=== PATIENT | male | born 1950 | race Caucasian/White ===

== ENCOUNTER 2016-10-28 10:15 | Inpatient (IN) | payer OTHER ==
[~2016-10-28] VITALS: Ht 175.3 cm; Wt 115.8 kg
--- NOTE | ~2016-10-28 | EKG ---
[address] [address] ELECTROCARDIOGRAM REPORT Name: RADHA DEL VALLE Room #: 245-[facility].R.#: [id number] Admission: 10/29/16 Attend Phys: Jacob Flores MD Discharge: Date of : 48 Report #: [id number] THIS REPORT FOR: //name// [facility] Test Date: 2016-10-28 Test Time: 13:32:13 Pat Name: RADHA DEL VALLE Department: Room: [facility] Gender: M Vehicle Check In Clerk: juanjose : 1950 Requested By: Jacob Flores Order Number: [id number] MD: Herb Hooper Measurements Intervals [place] Rate: 56 P: 3 [place]: 134 QRS: 81 QRSD: 128 T: 71 QT: 487 QTc: 471 Interpretive Statements Sinus bradycardia Nonspecific intraventricular conduction delay Compared to ECG 11/27/2004 07:09:20 nonspecific change in the ST and T wave segments Electronically Signed On 10-29-2016 9:19:21 CDT by Herb Hooper [email or web address] <ELECTRONICALLY SIGNED> By: Herb Hooper MD, [facility] 10/29/16918 31 31 Herb Hooper MD, FAC /EPI
--- NOTE | ~2016-10-28 | EKG ---
[address] [address] ELECTROCARDIOGRAM REPORT Name: RADHA DEL VALLE Room #: 209-P ADM IN M.R.#: [id number] Admission: 10/28/16 Attend Phys: Jacob Flores MD Discharge: Date of : 48 Report #: [id number] THIS REPORT FOR: //name// [facility] Test Date: 2016-11-01 Test Time: 07:50:07 Pat Name: RADHA DEL VALLE Department: Room: 209 Gender: M Street Department Dispatcher: elva : 1950 Requested By: Pablo Ogden Order Number: [id number] MD: Herb Hooper Measurements Intervals [place] Rate: 85 P: 59 [place]: 149 QRS: 75 QRSD: 119 T: 30 QT: 408 QTc: 486 Interpretive Statements Sinus rhythm Nonspecific intraventricular conduction delay Low voltage, extremity leads Compared to ECG 10/29/2016 06:45:19 Intraventricular conduction delay now present Electronically Signed On 11-02-2016 14:59:43 CDT by Herb Hooper [email or web address] <ELECTRONICALLY SIGNED> By: Herb Hooper MD, [facility] 11/02/16 1459 0750 0750 Herb Hooper MD, FAC /EPI
--- NOTE | ~2016-10-28 | EKG ---
[address] [place] [address] ELECTROCARDIOGRAM REPORT Name: RADHA DEL VALLE Room #: 245-P ADM IN M.R.#: [id number] Admission: 10/28/16 Attend Phys: Jacob Flores MD Discharge: Date of : 48 Report #: [id number] THIS REPORT FOR: //name// [facility] Test Date: 2016-10-29 Test Time: 06:45:19 Pat Name: RADHA DEL VALLE Department: Room: [facility] Gender: M Manager Risk Management: wilmar : 1950 Requested By: Pablo Ogden Order Number: [id number] MD: Herb Hooper Measurements Intervals [place] Rate: 85 P: 55 [place]: 132 QRS: 89 QRSD: 105 T: 43 QT: 377 QTc: 449 Interpretive Statements Sinus rhythm Low voltage, extremity leads Compared to ECG 11/27/2004 07:09:20 Low QRS voltage now present no significant change was found Electronically Signed On 10-30-2016 8:43:08 CDT by Herb Hooper [email or web address] <ELECTRONICALLY SIGNED> By: Herb Hooper MD, [facility] 10/30/16 0843 Herb Hooper MD, [facility] /EPI
--- NOTE | ~2016-10-28 | HC ---
[facility] [place] [address] [place] [address] CONSULTATION Name: RADHA DEL VALLE Room #: 245-P ADM IN M.R.#: [id number] Admission: 10/28/16 Attend Phys: Jacob Flores MD Discharge: Date of : 48 Report #: [id number] THIS REPORT FOR: //name// CC: Jacob Parekh REASON FOR CONSULTATION: Acute kidney injury. REASON FOR PRESENTATION: Elective cardiac catheterization. HISTORY OF PRESENT ILLNESS: This is a very pleasant 66-year-old with past medical history of diabetes mellitus, hypertension. He is also known to have chronic kidney disease. He runs a baseline creatinine of around 1.5. He is known to have nephrolithiasis status post extraction with cystoscopy procedure x 2. He presented to the laboratory immunologist for cardiac catheterization. He was maintained on losartan, metformin, statin, baby aspirin. The initial cardiac catheterization revealed that the patient has a significant LAD lesion. Attempted angioplasty was done, it is not clear how much contrast did he receive from the notes. Multiple balloons were used. The patient was sent to the recovery room where he continued to have chest pain. He was retaken to the catheterization lab and LAD angioplasty was done for the second time. This has resulted in increased duration of the flow. It was not also clear how much did the patient receive of the contrast. He was then taken to an uneventful emergent coronary artery bypass grafting surgery. On presentation to the hospital had a baseline creatinine of around 1.5, which is very close to his previous old records. He had some low blood pressure reading, but no [place] hypotension. Post cath, his creatinine started to go up to a peak of 2.4. He continued to make urine. I was consulted to manage his acute kidney injury. PAST MEDICAL HISTORY: 1. Diabetes mellitus. 2. Hypertension. 3. Nephrolithiasis. 4. Hyperlipidemia. 5. Chronic kidney disease. PAST SURGICAL HISTORY: 1. Cystoscopy. 2. Recent cardiac catheterization. 3. Gallbladder surgery. 4. Melanoma, cancer removal from the neck. 5. Coronary artery bypass grafting. MEDICATIONS: 1. Metformin. 2. Losartan. 3. Simvastatin. [facility] [address] [place] [address] CONSULTATION Name: RADHA DEL VALLE Uvaldo Room #: 245-P [facility] IN .R.#: [id number] Admission: 10/28/16 Attend Phys: Jacob Flores MD Discharge: Date of : 48 Report #: [id number] 4. Baby aspirin. FAMILY HISTORY: Significant for diabetes mellitus. SOCIAL HISTORY: He denies drug or alcohol abuse. He is retired. 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 REVIEW OF SYSTEMS: GENERAL: As expected, some weakness as expected. CARDIOVASCULAR: Minimal chest pain related to coronary artery bypass grafting wound. PULMONARY: No cough or hemoptysis. GASTROINTESTINAL: No nausea or vomiting. GENITOURINARY: No frequency, no urgency. PHYSICAL EXAMINATION: GENERAL: He is alert, oriented and afebrile. VITAL SIGNS: Temperature of 37, pulse rate was 78. Blood pressure was 116/70. He had a right-sided Cordis line. He has chest tubes. CHEST: Decreased air entry bilaterally, but no crackles. CARDIOVASCULAR: Midline wound. Regular with no rub detected. ABDOMEN: Soft, nontender with no hepatosplenomegaly. LOWER EXTREMITIES: No edema. LABORATORY DATA: Reviewed. Creatinine as I have stated has gone up from 1.5-2.4. Potassium is okay. Acid base status is okay. Chest x-ray reviewed. ASSESSMENT, IMPRESSION, PLAN: 1. Acute kidney injury with contrast induced nephropathy. 2. Status post coronary artery bypass grafting. 3. Coronary artery disease. 4. Diabetes mellitus. 5. Hypertension. 6. Chronic kidney disease with a creatinine . 7. I need to clarify with the laboratory immunologist the amount of the contrast he received on those two cath procedures. 8. I will send appropriate acute kidney injury workup including limited UA with urine electrolytes. 9. He continues to make appropriate amount of urine and hopefully will recover from this event or from this incident uneventfully. 10. Optimize blood pressure. 11. Hold losartan. 12. Hold metformin and any other nephrotoxic agents. [address] [address] CONSULTATION Name: RADHA DEL VALLE Room #: 245-P [facility] IN M.R.#: [id number] Admission: 10/28/16 Attend Phys: Jacob Flores MD Discharge: Date of : 48 Report #: [id number] 13. Strict input and output. Monitor urine output. Repeat labs in the morning. 14. Risk of continued worsening of his acute kidney injury was discussed with his. 15. Risk of need for dialysis was also discussed for his. At this point, I see no indication for any invasive intervention and will follow along in the next few days. 16. Continue with the appropriate treatment for his coronary artery disease including beta bg, aspirin, statin. As I have stated about will hold on any angiotensin-converting enzyme and until his overall of his kidney function recovers. 17. Blood sugar control. <ELECTRONICALLY SIGNED> By: Mushtaq Armijo MD 10/31/16 0921 1015 1222 Mushtaq Armijo MD /nt
--- NOTE | ~2016-10-28 | HC ---
[facility] [place] [address] CONSULTATION Name: RADHA DEL VALLE Room #: 209-P [facility] IN M.R.#: [id number] Admission: 10/28/16 Attend Phys: Jacob Flores MD Discharge: 11/03/16 Date of : 48 Report #: [id number] THIS REPORT FOR: //name// CC: Jacob Parekh DATE OF SERVICE: 10/30/2016 REQUESTING PHYSICIAN: Dr. Ogden. REASON FOR CONSULTATION: Medical management. HISTORY OF PRESENT ILLNESS: The patient is a 66-year-old man with coronary artery disease, who underwent emergent coronary artery bypass grafting surgery after cardiac catheterization and angioplasty. He had procedure on 10/28/2016. The patient is recovering well. His postop course is uncomplicated. The patient is alert and awake. He reports minor postop pain, and mild cough. Otherwise, he is asymptomatic. The patient states that he was diagnosed with diabetes mellitus type 2 five or six years ago. He takes metformin 500 mg twice a day. He checks blood sugars only in the morning, and he states that his blood sugar is almost always less than 120. He does not check blood sugars in the evening. We do not have current hemoglobin A1c available. The patient considers his diabetes is well controlled. He does not follow any specific diet, and he is not physically active. The patient developed acute kidney injury after cardiac catheterization. Initially, his creatinine was 1.5. Currently, his creatinine is 2.4. Metformin is discontinued. The patient is started on subcutaneous insulin. He is followed by communications intern. PAST MEDICAL HISTORY: 1. Diabetes mellitus type 2. 2. Hypertension. 3. History of nephrolithiasis. 4. Dyslipidemia. CURRENT MEDICATIONS: Reviewed and documented in the patient's chart. FAMILY HISTORY: Reviewed and not pertinent to the patient's current condition. SOCIAL HISTORY: The patient is retired. He does not smoke cigarettes and does not drink alcohol. [facility] [address] [place] [address] CONSULTATION Name: RADHA DEL VALLE Room #: 209-P [facility] IN [facility].#: [id number] Admission: 10/28/16 Attend Phys: Jacob Flores MD Discharge: 11/03/16 Date of : 48 Report #: [id number] REVIEW OF SYSTEMS: As above in HPI section, all others negative. PHYSICAL EXAMINATION: GENERAL: The patient is an elderly man who is in no apparent distress. He is alert and oriented x 3. VITAL SIGNS: Blood pressure is 106/45, heart rate is 101, respiration is 26, temperature is 37.6. HEENT: Pupils are equal. Eye movements are normal. The patient has anicteric sclerae. Oral mucosa is moist. JVD is not appreciated. NECK: He has no thyromegaly. RESPIRATORY: Chest moves symmetrically with breathing. LUNGS: He has clear respiratory sounds, slightly diminished at bases. CARDIOVASCULAR: The patient has regular rhythm and rate, without murmurs, gallops or rubs. GASTROINTESTINAL: Abdomen is soft, nondistended and nontender. Bowel sounds are present. The patient has no hepatomegaly or splenomegaly. MUSCULOSKELETAL: There is no edema, cyanosis or clubbing. Range of motion is normal. NEUROLOGIC: The patient is alert and oriented x 3. His examination is nonfocal. SKIN: Dry and warm. No skin lesions are appreciated. LABORATORY DATA: Electrolytes are normal. Creatinine is 2.4. Liver function tests from this admission are normal. CBC: Hemoglobin is 8.0, hematocrit is 23.9, white count is 13.4, platelets 184. ASSESSMENT AND PLAN: 1. A 66-year-old man status post coronary artery bypass grafting surgery. Managed by primary team and cable operator. 2. Diabetes mellitus type 2. Acceptable blood sugars. The patient is on moderate dose sliding scale insulin. We agree holding metformin in the setting of acute kidney injury and elevated creatinine. The patient will be treated with insulin for now, and blood sugar will be monitored closely. We are checking hemoglobin A1c. Insulin will be adjusted based on hospital blood sugar monitoring results. Depending on the kidney function, patient can be either resumed on the metformin or an alternative oral agent when the patient goes home. 3. History of hypertension. Acceptable control. We will continue to follow the patient during the hospitalization, we will [place] [address] CONSULTATION Name: RADHA DEL VALLE Room #: 209-P DIS IN M.R.#: [id number] Admission: 10/28/16 Attend Phys: Jacob Flores MD Discharge: 11/03/16 Date of : 48 Report #: [id number] Once again, we appreciate the opportunity of participating in the care of your patient. <ELECTRONICALLY SIGNED> By: Alejandro Tse MD 11/03/16 2227 1708 0546 Alejandro Tse MD /nt
--- NOTE | ~2016-10-28 | O ---
[facility] [place] [address] [place] [address] OPERATIVE REPORT Name: RADHA DEL VALLE Room #: 209-P ADM IN M.R.#: [id number] Admission: 10/28/16 Attend Phys: Jacob Flores MD Discharge: Date of : 48 Report #: [id number] THIS REPORT FOR: //name// CC: Jacob Parekh DATE OF SERVICE: 10/28/2016. PREOPERATIVE DIAGNOSIS: Coronary artery disease. POSTOPERATIVE DIAGNOSIS: Coronary artery disease. OPERATION: Emergency coronary artery bypass (left internal mammary artery to left anterior descending artery). INDICATIONS: The patient is a 66-year-old seen for Dr. Flores. 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 Flores was able to open this with a repeat angioplasty and antiplatelet medicine, stent could not be placed and with fear that the vessel with acutely close again patient was taken directly to the operating room for emergency bypass surgery. 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 This was a small vessel that had a 60-70% lesion, but we thought that this was a trivial problem in view of the clinical circumstance. The rest of the coronary anatomy was normal. The LAD lesion was distal to two large diagonals that fed most of the lateral left ventricular wall. FINDINGS AND TECHNIQUE: After general anesthesia was established, exposure was obtained through median sternotomy. Left internal mammary artery was harvested from chest wall. Pericardial well was made. Cannulation sutures were placed. Heparin was given. Aorta was cannulated. Right atrium was cannulated. Cardioplegia needle was positioned in the aortic root. Retrograde cardioplegic catheter was placed in coronary sinus. Cardiopulmonary bypass was established. The aorta was cross clamped. Antegrade and retrograde cardioplegia were given. Ice was poured in the pericardial well. The heart was stopped. During electromechanical arrest, the distal anastomoses were performed and an end-to-side anastomosis was made between the left internal mammary artery and the left anterior descending artery. Patency of this vessel was checked with the temperature technique and when we were satisfied with this anastomosis, the warm retrograde cardioplegia was given followed by warm continuous blood to the coronary sinus. When this infusion was complete, crossclamp was removed, de-airing maneuvers were performed. The anastomosis was inspected and found to be satisfactory. [address] [address] OPERATIVE REPORT Name: RADHA DEL VALLE Room #: 209-P [facility] IN .R.#: [id number] Admission: 10/28/16 Attend Phys: Jacob Flores MD Discharge: Date of : 48 Report #: [id number] As the patient warmed, nice cardiac activity resumed, chest tubes and pacing wires were placed. When the patient was warm, he was weaned from cardiopulmonary bypass. Venous cannula was removed. Protamine was given, the aortic cannula was removed. Flows were measured in the bypass grafts. Flow in the graft and a good Doppler signal was audible in the internal mammary artery. Total crossclamp time was 30 minutes, total pump time 58 minutes. When hemostasis was satisfactory, chest was irrigated with antibiotic solution and closed in the usual fashion. The patient was taken to the Intensive Care Unit in good condition having tolerated the procedure well. All counts reported as correct. <ELECTRONICALLY SIGNED> By: Pablo Ogden MD 11/03/16 1413 0823 0858 Pablo Ogden MD /nt
--- NOTE | ~2016-10-28 | H ---
[facility] [address] [address] HISTORY AND PHYSICAL Name: ELIGIOOHPHI Bailon Room #: 209-P DIS IN M.R.#: [id number] Admission: 10/28/16 Attend Phys: Jacob Flores MD Discharge: 11/03/16 Date of : 48 Report #: [id number] THIS REPORT FOR: //name// For History and Physical, please see office documentation/handwritten note in the patient's medical record. <ELECTRONICALLY SIGNED> By: Jacob Flores MD 11/05/16 0902 0000 1126 Jacob Flores MD /[place]
--- NOTE | ~2016-10-28 | EKG ---
[address] [place] [place] [address] ELECTROCARDIOGRAM REPORT Name: RADHA DEL VALLE Room #: 245-P ADM IN M.R.#: [id number] Admission: 10/28/16 Attend Phys: Jacob Flores MD Discharge: Date of : 48 Report #: [id number] THIS REPORT FOR: //name// [facility] Test Date: 2016-10-28 Test Time: 21:42:20 Pat Name: RADHA DEL VALLE Department: Room: [facility] Gender: M Diet Counselor: Tam CASTANEDA : 1950 Requested By: Pablo Ogden Order Number: [id number] MD: Herb Hooper Measurements Intervals [place] Rate: 95 P: 20 [place]: 211 QRS: 75 QRSD: 114 T: 21 QT: 385 QTc: 484 Interpretive Statements Sinus rhythm Borderline prolonged [place] interval Low voltage, extremity leads Borderline prolonged QT interval Compared to ECG 11/27/2004 07:09:20 Sinus bradycardia no longer present Electronically Signed On 10-30-2016 8:41:04 CDT by Herb Hooper [email or web address] <ELECTRONICALLY SIGNED> By: Herb Hooper MD, [facility] 10/30/16 0841 41 41 Herb Hooper MD, [facility] /EPI
--- NOTE | ~2016-10-28 | D ---
[facility] [place] [address] DISCHARGE SUMMARY Name: RADHA DEL VALLE Room #: 209-P [facility] IN M.R.#: [id number] Admission: 10/28/16 Attend Phys: Jacob Flores MD Discharge: 11/03/16 Date of : 48 Report #: [id number] THIS REPORT FOR: //name// CC: Jacob Parekh FINAL DIAGNOSES: 1. Coronary artery disease status post angioplasty status post 1 vessel coronary artery bypass graft. 2. Diabetes mellitus. 3. Hypertension. 4. Hypercholesterolemia. 5. Chronic renal insufficiency. HOSPITAL COURSE: Please see the original H and P for full details. The patient presented with unstable angina. He developed dyspnea and chest pain with exertion. The patient developed dyspnea and diaphoresis with routine chores at home. A nuclear stress test revealed anterior wall ischemia. Given his presentation, he presented for an elective cardiac catheterization. He was found to have a severe occlusion in the proximal LAD. Angioplasty was initiated, but unable to fully dilate the lesion. There was a calcified lesion within the diseased area that was not able to be dilated with high pressure balloons. It was decided to consider bypass surgery. Immediately following the case, he reported having chest pains that were not fully alleviated with medications. A repeat catheterization revealed an acute occlusion at the lesion site in the LAD. Emergent balloon angioplasty was performed with yarsani of SARAH 3 blood flow down the LAD. It was decided at that time to proceed with bypass surgery with Dr. Ogden. A 1-vessel PALACIOS graft to the LAD was performed. He has remained hemodynamically stable post-bypass surgery. He did have issues with his creatinine level. The baseline creatinine is 1.5, increased to over 2. Nephrology was called to evaluate the patient. With time, the creatinine has returned down to 1.6. During this time, his blood pressure has been on the low side and a beta bg was not instituted. As per renal, the ARB medication was not resumed at this time. He has been stable clinically and will be discharged home. FINAL DISPOSITION: Includes atorvastatin 40 mg daily, aspirin 81 mg daily, amiodarone 200 mg twice a day as instructed for prophylaxis. Metformin, fenofibrate, pain medications. He is given instructions for a followup visit in the office. <ELECTRONICALLY SIGNED> By: Jacob Flores MD 11/04/16 0722 1324 1431 Jacob Flores MD /nt
--- NOTE | ~2016-10-28 | CATHLAB ---
[facility] [place] [place] [address] INVASIVE PROCEDURE REPORT Name: RADHA DEL VALLE Room #: 245-P [facility]#: [id number] Admission: 10/28/16 Attend Phys: Jacob Flores MD Discharge: Date of : 48 Date of Service: 10/28/16 1445 Report #: [id number] THIS REPORT FOR: //name// CC: Jacob Parekh DATE OF SERVICE: 10/28/2016 INDICATION: Unstable angina, abnormal nuclear stress test. Full risks, benefits and alternatives of cardiac catheterization were explained to the patient. All questions were answered. Informed consent was obtained. The right groin area was prepped and draped in a sterile manner. Lidocaine was given subcutaneously. A 4-Swedish sheath was inserted into the right femoral artery via modified Seldinger technique. CORONARY ANATOMY: The left main is a large caliber vessel, with no flow-limiting lesions. The first and second diagonal arteries are moderate sized caliber, with an early takeoff of the LAD. The first and second diagonal arteries supply the anterolateral and lateral bartlett. The LAD just after the takeoff of the first and second diagonal arteries has a severe occlusion in the proximal/mid segment, approximately 80%. This region is mildly calcified. After this stenosis, the remaining segments of the LAD did not have any flow-limiting lesions. 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 The left circumflex is a small caliber vessel, supplying one small obtuse marginal artery. In the proximal segment of the left circumflex artery, there is a severe blockage, 70%. Medical therapy is recommended. The RCA is a moderate to large size caliber vessel, dominant. The RCA is tortuous with no flow-limiting lesions. The LVEDP is approximately 20 mmHg. There is no gradient across the outflow tract. A ventriculogram was not performed in view of a mildly elevated creatinine level. ANGIOPLASTY REPORT: A 6-Swedish system was used. The patient was given Angiomax. I used a Luge wire to traverse the LAD lesion and placed it in the distal LAD. The LAD stenosis was predilated with a 2.5 mm balloon. There was a focal area within the lesion that was not dilated. I then used a 3.0 mm noncompliant balloon, NC Trek inflated up to 16 atmospheres. This did not dilate that focal area. I used a BMW as a marii wire for stability. I used another 3.0 x 15 mm noncompliant balloon, NC Trek inflated up to 22-23 atmospheres. There was still a stenotic area within the lesion, at least 70%. [facility] [address] [place] [address] INVASIVE PROCEDURE REPORT Name: RADHA DEL VALLE Room #: 245-P [facility]..#: [id number] Admission: 10/28/16 Attend Phys: Jacob Flores MD Discharge: Date of : 48 Date of Service: 10/28/16 1445 Report #: [id number] The patient remained hemodynamically stable at this time. It was decided to stop the procedure at this time and consider bypass surgery. 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 He was treated with Integrilin and IV nitro, but the pain persisted. The sheath was still in place and it was decided to inject the left coronary artery using a 6-Swedish guide. Injection of the left coronary artery revealed a total occlusion of the LAD at the lesion site. The patient was given heparin and I was able to introduce a Whisper wire down to the lesion site into the distal LAD. I ballooned with a 2.5 mm Trek balloon. This restored SARAH 3 blood flow down the LAD. This helped resolve his symptoms. The plan is to proceed with urgent bypass surgery. IMPRESSION: 1. Balloon angioplasty of the proximal/mid left anterior descending stenosis with acute closure in the dairy lab technician. Redilated with a balloon to restore SARAH 3 blood flow. There is still severely stenotic area within the lesion site, calcified. The plan is to proceed with urgent bypass surgery. 2. Patent first and second diagonal arteries and dominant right coronary artery. 3. 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 Recommend medical therapy. 4. Known to have normal left ventricular systolic function on a noninvasive stress testing. <ELECTRONICALLY SIGNED> By: Jacob Flores MD 10/29/16 0755 1445 54 Jacob Flores MD /nt
[~2016-10-28 10:15] MED LIST: ALLOPURINOL 30300 M2 PO; ASPIR 8181 MG PO; COQ-10100 MG PO; COZAAR 50 MG TA50 M2 PO; FENOFIBRATE160 MG PO; FLAX OIL1000 MG PO; LIPITOR10 MG PO; METFORMIN HCL500 MG PO; MULTIVITAMIN PO; PROZAC20 MG PO
[2016-10-28 10:42] VITALS: BP 116/76
[2016-10-28 14:12] LABS: HEMOGLOBIN 12.3 gm/dL (14.0-18.0); MCH 30.9 pg (26.0-34.0); MCHC 34.1 g/dL (28.0-37.0); MCV 90.8 fL (80.0-100.0); RBC 3.96 mil/uL (4.50-6.00); RDW 13.3 % (10.5-14.5); WBC 8.2 thou/uL (4.0-11.0)
[2016-10-28 14:20] LABS: ANION GAP 12 mmol/L (7-16); BUN 24 mg/dL (7-18); CALCIUM 8.2 mg/dL (8.5-10.1); CHLORIDE 106 mmol/L (98-107); CO2 20 mmol/L (21-32); CREATININE 1.5 mg/dL (0.7-1.3); GLUCOSE 126 mg/dL (74-106); POTASSIUM 4.3 mmol/L (3.5-5.1); SODIUM 138 mmol/L (136-145)
[2016-10-28 14:27] LABS: ALBUMIN 3.3 g/dL (3.4-5.0); ALKALINE PHOSPHATASE 39 U/L (46-116); APTT 55.4 Seconds (24.5-32.8); CHOLESTEROL 169 mg/dL (<200); HDL CHOLESTEROL 41 mg/dL (>40); INR 2.1; LDL CHOLESTEROL 102 mg/dL (<100); PROTIME 21.5 Seconds (9.3-11.4); SGOT 26 U/L (15-37); SGPT 34 U/L (30-65); TC:HDL 4.1 Ratio (Not establshd); TOTAL BILIRUBIN 0.5 mg/dL (<0.1-1.0); TOTAL PROTEIN 6.6 g/dL (6.4-8.2); TRIGLYCERIDE 131 mg/dL (<150); TROPONIN-I < 0.04 ng/mL (<0.04-0.07); VLDL 26 mg/dL (<40)
[2016-10-28 19:58] LABS: MCH 30.7 pg (26.0-34.0); MCHC 33.5 g/dL (28.0-37.0); MCV 91.8 fL (80.0-100.0); RBC 2.28 mil/uL (4.50-6.00); RDW 13.3 % (10.5-14.5); WBC 13.9 thou/uL (4.0-11.0)
[2016-10-28 20:06] LABS: FIBRINOGEN 142.1 mg/dL (210-360); INR 1.5; PROTIME 15.4 Seconds (9.3-11.4)
[2016-10-28 20:07] LABS: APTT 32.5 Seconds (24.5-32.8)
[2016-10-28 20:51] LABS: POC BE -1 mmol/L (-2.0 to +3.0); POC CA IONIZED 4.6 mg/dL (4.5-5.3); POC FiO2 100 %; POC GLUCOSE 154 mg/dL (70-99); POC HCO3 24.7 mmol/L (22.0-26.0); POC HEMOGLOBIN 9.2 g/dL (14.0-18.0); POC POTASSIUM 4.6 mmol/L (3.5-5.1); POC SODIUM 137 mmol/L (136-145); POC pCO2 43.8 mmHg (35.0-45.0); POC pH 7.359 (7.360-7.450)
[2016-10-28 20:51] LABS: POC BE 0 mmol/L (-2.0 to +3.0); POC CA IONIZED 4.7 mg/dL (4.5-5.3); POC FiO2 100 %; POC GLUCOSE 154 mg/dL (70-99); POC HCO3 25.5 mmol/L (22.0-26.0); POC HEMOGLOBIN 8.8 g/dL (14.0-18.0); POC POTASSIUM 5.2 mmol/L (3.5-5.1); POC SODIUM 136 mmol/L (136-145); POC pCO2 45.6 mmHg (35.0-45.0); POC pH 7.356 (7.360-7.450)
[2016-10-28 20:51] LABS: POC BE -5 mmol/L (-2.0 to +3.0); POC CA IONIZED 4.1 mg/dL (4.5-5.3); POC FiO2 100 %; POC GLUCOSE 127 mg/dL (70-99); POC HCO3 21.3 mmol/L (22.0-26.0); POC HEMOGLOBIN 8.8 g/dL (14.0-18.0); POC POTASSIUM 5.8 mmol/L (3.5-5.1); POC SODIUM 130 mmol/L (136-145); POC pCO2 44.7 mmHg (35.0-45.0); POC pH 7.285 (7.360-7.450)
[2016-10-28 20:51] LABS: POC BE -2 mmol/L (-2.0 to +3.0); POC FiO2 100 %; POC GLUCOSE 147 mg/dL (70-99); POC HCO3 23.2 mmol/L (22.0-26.0); POC HEMOGLOBIN 8.5 g/dL (14.0-18.0); POC POTASSIUM 5.4 mmol/L (3.5-5.1); POC SODIUM 134 mmol/L (136-145); POC pCO2 42.7 mmHg (35.0-45.0); POC pH 7.343 (7.360-7.450)
[2016-10-28 20:51] LABS: POC BE -3 mmol/L (-2.0 to +3.0); POC CA IONIZED 4.8 mg/dL (4.5-5.3); POC FiO2 100 %; POC GLUCOSE 138 mg/dL (70-99); POC HCO3 23.1 mmol/L (22.0-26.0); POC HEMOGLOBIN 11.6 g/dL (14.0-18.0); POC POTASSIUM 4.9 mmol/L (3.5-5.1); POC SODIUM 138 mmol/L (136-145); POC pCO2 46.3 mmHg (35.0-45.0); POC pH 7.307 (7.360-7.450)
[2016-10-28 20:51] LABS: POC BE 0 mmol/L (-2.0 to +3.0); POC CA IONIZED 4.8 mg/dL (4.5-5.3); POC FiO2 100 %; POC GLUCOSE 136 mg/dL (70-99); POC HCO3 25.7 mmol/L (22.0-26.0); POC HEMOGLOBIN 11.6 g/dL (14.0-18.0); POC POTASSIUM 4.8 mmol/L (3.5-5.1); POC SODIUM 136 mmol/L (136-145); POC pCO2 46.4 mmHg (35.0-45.0); POC pH 7.352 (7.360-7.450)
[2016-10-28 20:51] LABS: POC BE 0 mmol/L (-2.0 to +3.0); POC CA IONIZED 4.2 mg/dL (4.5-5.3); POC FiO2 100 %; POC GLUCOSE 152 mg/dL (70-99); POC HCO3 25.9 mmol/L (22.0-26.0); POC HEMOGLOBIN 8.5 g/dL (14.0-18.0); POC POTASSIUM 6.3 mmol/L (3.5-5.1); POC SODIUM 132 mmol/L (136-145); POC pCO2 45.8 mmHg (35.0-45.0)
[2016-10-28 20:51] LABS: POC BE -7 mmol/L (-2.0 to +3.0); POC CA IONIZED 3.8 mg/dL (4.5-5.3); POC FiO2 100 %; POC GLUCOSE 113 mg/dL (70-99); POC HEMOGLOBIN 7.5 g/dL (14.0-18.0); POC POTASSIUM 4.9 mmol/L (3.5-5.1); POC SODIUM 115 mmol/L (136-145); POC pCO2 47.2 mmHg (35.0-45.0); POC pH 7.235 (7.360-7.450)
[2016-10-28 20:51] LABS: POC BE -2 mmol/L (-2.0 to +3.0); POC CA IONIZED 4.8 mg/dL (4.5-5.3); POC FiO2 100 %; POC GLUCOSE 141 mg/dL (70-99); POC HCO3 23.7 mmol/L (22.0-26.0); POC HEMOGLOBIN 10.5 g/dL (14.0-18.0); POC POTASSIUM 4.8 mmol/L (3.5-5.1); POC SODIUM 138 mmol/L (136-145); POC pCO2 45.8 mmHg (35.0-45.0); POC pH 7.322 (7.360-7.450)
[2016-10-28 21:38] LABS: ABG SAMPLE TYPE ARTERIAL; BE(vivo) -4.5 mmol/L (-2 to +3); HCO3 21.7 mmol/L (22.0-26.0); LACTATE 1.98 mmol/L (0.5-2.0); O2(CT) 12.4 mL/dL (15.0-23.0); O2Hb 96.7 % (92.0-98.0); PCO2 44.5 mmHg (35.0-45.0); sO2 98.4 % (92.0-98.0)
[2016-10-28 21:39] LABS: STICK SITE LINE; TIDAL VOLUME 700 ml; pH 7.305 (7.360-7.450)
[2016-10-28 22:02] LABS: HEMATOCRIT 24.6 % (42.0-52.0); HEMOGLOBIN 8.3 gm/dL (14.0-18.0); MCH 30.7 pg (26.0-34.0); MCHC 33.7 g/dL (28.0-37.0); MCV 91.3 fL (80.0-100.0); RBC 2.69 mil/uL (4.50-6.00); RDW 13.1 % (10.5-14.5); WBC 13.3 thou/uL (4.0-11.0)
[2016-10-28 22:09] LABS: CALCIUM 8.7 mg/dL (8.5-10.1); CREATININE 1.8 mg/dL (0.7-1.3); POTASSIUM 4.5 mmol/L (3.5-5.1)
[2016-10-28 22:23] LABS: APTT 26.1 Seconds (24.5-32.8); INR 1.2; PROTIME 12.1 Seconds (9.3-11.4)
[2016-10-29] VITALS (11 sets, daily range): BP systolic 67–117; BP diastolic 53–76
[2016-10-29 00:02] LABS: ABG SAMPLE TYPE ARTERIAL; BE(vivo) -3.5 mmol/L (-2 to +3); HCO3 21.9 mmol/L (22.0-26.0); LACTATE 2.41 mmol/L (0.5-2.0); O2(CT) 14.4 mL/dL (15.0-23.0); O2Hb 97.4 % (92.0-98.0); PCO2 41.2 mmHg (35.0-45.0); PO2 146.6 mmHg (80.0-100.0); pH 7.344 (7.360-7.450); sO2 98.8 % (92.0-98.0); tCO2 23.2 mmol/L (24.0-30.0)
[2016-10-29 00:03] LABS: STICK SITE LINE; TIDAL VOLUME 700 ml
[2016-10-29 01:10] LABS: HEMATOCRIT 28.3 % (42.0-52.0); HEMOGLOBIN 9.6 gm/dL (14.0-18.0); MCHC 33.8 g/dL (28.0-37.0); MCV 88.7 fL (80.0-100.0); RBC 3.19 mil/uL (4.50-6.00); RDW 14.8 % (10.5-14.5); WBC 14.6 thou/uL (4.0-11.0)
[2016-10-29 01:26] LABS: CALCIUM 9.4 mg/dL (8.5-10.1); POTASSIUM 4.7 mmol/L (3.5-5.1)
[2016-10-29 05:27] LABS: ABG SAMPLE TYPE ARTERIAL; BE(vivo) -5.7 mmol/L (-2 to +3); HCO3 19.1 mmol/L (22.0-26.0); LACTATE 1.81 mmol/L (0.5-2.0); O2(CT) 14.1 mL/dL (15.0-23.0); O2Hb 96.8 % (92.0-98.0); PCO2 34.7 mmHg (35.0-45.0); PO2 116.2 mmHg (80.0-100.0); pH 7.359 (7.360-7.450); sO2 98.1 % (92.0-98.0); tCO2 20.2 mmol/L (24.0-30.0)
[2016-10-29 05:28] LABS: STICK SITE LINE; TIDAL VOLUME 700 ml
[2016-10-29 05:36] LABS: HEMATOCRIT 27.8 % (42.0-52.0); HEMOGLOBIN 9.3 gm/dL (14.0-18.0); MCH 29.6 pg (26.0-34.0); MCHC 33.4 g/dL (28.0-37.0); MCV 88.6 fL (80.0-100.0); RBC 3.14 mil/uL (4.50-6.00); RDW 15.3 % (10.5-14.5); WBC 11.5 thou/uL (4.0-11.0)
[2016-10-29 05:52] LABS: CALCIUM 8.8 mg/dL (8.5-10.1); CREATININE 2.1 mg/dL (0.7-1.3); POTASSIUM 5.1 mmol/L (3.5-5.1)
[2016-10-29 09:51] LABS: ABG COMMENT CPAP TRIAL; ABG SAMPLE TYPE ARTERIAL; HCO3 19.8 mmol/L (22.0-26.0); LACTATE 3.25 mmol/L (0.5-2.0); O2(CT) 13.7 mL/dL (15.0-23.0); O2Hb 95.3 % (92.0-98.0); PCO2 35.3 mmHg (35.0-45.0); PO2 90.9 mmHg (80.0-100.0); Pressure Support 5 cm H20; STICK SITE LINE; pH 7.366 (7.360-7.450); sO2 96.8 % (92.0-98.0); tCO2 20.8 mmol/L (24.0-30.0)
[2016-10-30] VITALS (9 sets, daily range): BP systolic 106–121; BP diastolic 61–76
[2016-10-30 04:45] LABS: HEMATOCRIT 23.9 % (42.0-52.0); MCH 29.9 pg (26.0-34.0); MCHC 33.3 g/dL (28.0-37.0); MCV 89.6 fL (80.0-100.0); RBC 2.67 mil/uL (4.50-6.00); RDW 15.1 % (10.5-14.5); WBC 13.4 thou/uL (4.0-11.0)
[2016-10-30 04:52] LABS: CALCIUM 8.3 mg/dL (8.5-10.1); CREATININE 2.4 mg/dL (0.7-1.3); POTASSIUM 4.6 mmol/L (3.5-5.1)
[2016-10-30 12:55] LABS: URINE BILIRUBIN NEGATIVE (Negative); URINE BLOOD NEGATIVE (Negative); URINE COLOR YELLOW; URINE GLUCOSE-RANDOM* NEGATIVE (Negative); URINE KETONES NEGATIVE (Negative); URINE NITRITE NEGATIVE (Negative); URINE PROTEIN (DIPSTICK) NEGATIVE (Negative); URINE SPECIFIC GRAVITY >= 1.030 (1.003-1.035); URINE UROBILINOGEN 0.2 E.U./dl (0.2-1.0)
[2016-10-30 20:08] LABS: URINE PROTEIN-RANDOM* 26.5 mg/dL (Not Estab.)
[2016-10-31] VITALS (10 sets, daily range): BP systolic 103–121; BP diastolic 63–73
[2016-10-31 02:10] LABS: GLYCOHEMOGLOBIN (HGB A1C) 6.2 % (4.8-5.6)
[2016-10-31 07:00] LABS: HEMOGLOBIN 8.4 gm/dL (14.0-18.0); MCH 30.3 pg (26.0-34.0); MCHC 33.4 g/dL (28.0-37.0); MCV 90.8 fL (80.0-100.0); RBC 2.76 mil/uL (4.50-6.00); RDW 15.3 % (10.5-14.5); WBC 12.7 thou/uL (4.0-11.0)
[2016-10-31 07:13] LABS: URINE CREATININE-RANDOM* 258.2 mg/dL (Not Estab.)
[2016-10-31 07:18] LABS: ALBUMIN 3.1 g/dL (3.4-5.0); CALCIUM 8.7 mg/dL (8.5-10.1); CREATININE 2.3 mg/dL (0.7-1.3); POTASSIUM 4.7 mmol/L (3.5-5.1)
[2016-11-01 07:30] VITALS: BP 115/72
[2016-11-01 09:12] LABS: HEMATOCRIT 25.2 % (42.0-52.0); HEMOGLOBIN 8.4 gm/dL (14.0-18.0); MCH 30.4 pg (26.0-34.0); MCHC 33.5 g/dL (28.0-37.0); MCV 90.6 fL (80.0-100.0); RBC 2.78 mil/uL (4.50-6.00); RDW 15.1 % (10.5-14.5); WBC 8.9 thou/uL (4.0-11.0)
[2016-11-01 09:26] LABS: CALCIUM 8.7 mg/dL (8.5-10.1); CREATININE 1.8 mg/dL (0.7-1.3); POTASSIUM 3.8 mmol/L (3.5-5.1)
[2016-11-01 09:29] LABS: PHOSPHORUS 4.2 mg/dL (2.5-4.9)
[2016-11-01 11:25] VITALS: BP 118/71; BP 97/52
[2016-11-01 16:30] VITALS: BP 111/72
[2016-11-01 19:36] VITALS: BP 131/56
[2016-11-02 04:18] VITALS: BP 110/68
[2016-11-02 08:58] LABS: HEMATOCRIT 22.4 % (42.0-52.0); HEMOGLOBIN 7.9 gm/dL (14.0-18.0); MCH 31.8 pg (26.0-34.0); MCHC 35.2 g/dL (28.0-37.0); MCV 90.3 fL (80.0-100.0); RBC 2.48 mil/uL (4.50-6.00); RDW 14.9 % (10.5-14.5); WBC 8.9 thou/uL (4.0-11.0)
[2016-11-02 09:13] LABS: ALBUMIN 2.8 g/dL (3.4-5.0); CALCIUM 8.2 mg/dL (8.5-10.1); CREATININE 1.7 mg/dL (0.7-1.3); PHOSPHORUS 4.2 mg/dL (2.5-4.9); POTASSIUM 4.1 mmol/L (3.5-5.1)
[2016-11-02 14:28] LABS: HEMATOCRIT 24.7 % (42.0-52.0); HEMOGLOBIN 8.4 gm/dL (14.0-18.0); MCHC 34.1 g/dL (28.0-37.0); MCV 90.9 fL (80.0-100.0); RBC 2.72 mil/uL (4.50-6.00); RDW 14.9 % (10.5-14.5); WBC 9.6 thou/uL (4.0-11.0)
[2016-11-02 18:35] VITALS: BP 122/60
[2016-11-02 20:21] VITALS: BP 122/73
[2016-11-03 05:08] VITALS: BP 119/76
[2016-11-03 07:27] LABS: HEMATOCRIT 24.8 % (42.0-52.0); HEMOGLOBIN 8.2 gm/dL (14.0-18.0); MCH 30.1 pg (26.0-34.0); MCHC 33.2 g/dL (28.0-37.0); MCV 90.8 fL (80.0-100.0); RBC 2.73 mil/uL (4.50-6.00); RDW 14.9 % (10.5-14.5); WBC 10.1 thou/uL (4.0-11.0)
[2016-11-03 07:32] VITALS: BP 135/70
[2016-11-03 07:41] LABS: ALBUMIN 2.8 g/dL (3.4-5.0); CALCIUM 8.3 mg/dL (8.5-10.1); CREATININE 1.6 mg/dL (0.7-1.3); PHOSPHORUS 4.5 mg/dL (2.5-4.9)
[2016-11-03 13:01] VITALS: BP 121/68
[2016-11-03] MEDS ORDERED: FERREX 150 PLU1 EAC1 PO (13:05)
[2016-11-03] MEDS ORDERED: PACERONE 200 M200 M1 PO (13:06)
[2016-11-03 15:08] VITALS: BP 121/68
[2016-11-03] MEDS ORDERED: HYDROCODON-ACE1 EAC7 PO (15:23)
[2016-11-03 20:06] VITALS: BP 121/68
== END 2016-11-03 16:03 | disposition home or self-care (01) | DRG 231 ==
LOC: CATH 10:15 → ICU 21:23 → CATH 21:40 → ICU 21:41 → CATH 10-29 08:39 → ICU 10-29 08:39 → CATH 10-29 08:40 → ICU 10-29 08:40 → CATH 10-29 11:23 → 2N 10-31 16:20
PROVIDERS: Anesthesiology; Hospitalist; Internal Medicine Cardiovascular Disease; Internal Medicine Endocrinology, Diabetes & Metabolism; Surgery Vascular Surgery
DX: I25.110 Atherosclerotic heart disease of native coronary artery with unstable angina pectoris (principal); J96.90 Respiratory failure, unspecified, unspecified whether with hypoxia or hypercapnia; D62 Acute posthemorrhagic anemia; N17.9 Acute kidney failure, unspecified; R58 Hemorrhage, not elsewhere classified; E78.5 Hyperlipidemia, unspecified; E78.00 Pure hypercholesterolemia, unspecified; E11.22 Type 2 diabetes mellitus with diabetic chronic kidney disease; I12.9 Hypertensive chronic kidney disease with stage 1 through stage 4 chronic kidney disease, or unspecified chronic kidney disease; N18.9 Chronic kidney disease, unspecified; Z79.82 Long term (current) use of aspirin; Z79.899 Other long term (current) drug therapy; Z90.49 Acquired absence of other specified parts of digestive tract; Z87.442 Personal history of urinary calculi; Z83.3 Family history of diabetes mellitus
CPT/HCPCS: 10078; 10081; 47000; 47001; 47002; 47297; 48888; 50249; 50409; 50456; 50498; 50668; 51301; 52131; 52259; 53327; 53358; 54118; 56524; 56525; 56526; 56527; 56528; 56531; 56534; 56639; 56660; 56898; 57093; 62110; 62950; 64029; 65002; 65003; 65020; 65043; 65090; 65120; 85076

== ENCOUNTER 2017-04-09 12:22 | Inpatient (IN) | payer OTHER ==
[2017-04-09] VITALS (7 sets, daily range): BP systolic 82–114; BP diastolic 44–67
[~2017-04-09] VITALS: Ht 180.3 cm; Wt 93.4 kg
--- NOTE | ~2017-04-09 | EKG ---
[address] [address] ELECTROCARDIOGRAM REPORT Name: RADHA DEL VALLE Room #: 216-P ADM IN M.R.#: [id number] Admission: 04/09/17 Attend Phys: Valdez Parekh MD Discharge: Date of : 48 Report #: [id number] THIS REPORT FOR: //name// 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 : 1950 Requested By: Carlyle Gibson Order Number: [id number] MD: Casey Hodgson Measurements Intervals [place] Rate: 60 P: 51 WA: 179 QRS: 77 QRSD: 116 T: 86 QT: 449 QTc: 449 Interpretive Statements Sinus rhythm Nonspecific intraventricular conduction delay Low voltage, extremity leads Abnrm T, consider ischemia, anterolateral lds Compared to ECG 11/01/2016 07:50:07 Possible ischemia now present Electronically Signed On 04-09-2017 15:47:02 CDT by Casey Hodgson [email or web address] <ELECTRONICALLY SIGNED> By: Casey Hodgson MD 04/09/17 1547 1237 1237 Casey Hodgson MD /EPI
--- NOTE | ~2017-04-09 | HC ---
[facility] [place] [address] [address] CONSULTATION Name: RADHA DEL VALLE Room #: 216-P [facility] IN M.R.#: [id number] Admission: 04/09/17 Attend Phys: Valdez Parekh MD Discharge: 04/10/17 Date of : 48 Report #: [id number] THIS REPORT FOR: //name// CC: Valdez Parekh DATE OF SERVICE: 04/09/2017 INDICATION: Near syncope. HISTORY OF PRESENT ILLNESS: This is a 66-year-old gentleman presenting with an episode of near syncope. He reports going for walk for about an hour this morning. Afterwards, he went down stairs to the basement to bring up vacuum washroom cleaner. On the way up, he felt lightheaded. He sat down and then when he stood up again, he felt lightheaded and passed out. He does not believe that he lost consciousness completely. He is able to recall all the details surrounding this event. He denies any chest pains, fever, or chills. He did feel some closing of his throat area, which was transient. He had a recent bypass surgery in October of this year. Since the operation, he has lost approximately 50 pounds. Since then, he has not required any of his blood pressure medications. In fact, his blood pressure has been on the low side during his office visits. He does have occasional episodes of orthostatic lightheadedness. PAST MEDICAL HISTORY: Unstable angina in October 2016, with an abnormal nuclear stress test. He was found to have a severe occlusion of the LAD with an unsuccessful angioplasty secondary to inability to dilate the lesion. There was significant . He underwent emergent bypass with a PALACIOS graft to the LAD. The remaining coronary arteries are patent. 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 History of hypercholesterolemia and diabetes mellitus. ALLERGIES: None. CURRENT MEDICATIONS: Include aspirin once a day, Lipitor, and metformin. SOCIAL HISTORY: Negative for tobacco use. FAMILY HISTORY: Negative for premature CAD. REVIEW OF SYSTEMS: A full 10-point review of systems performed, only the pertinent positives and negatives are described in the HPI. PHYSICAL EXAMINATION: VITAL SIGNS: Blood pressure upon admission was 82/44, heart rate is 65 beats per minute. [address] [address] CONSULTATION Name: RADHA DEL VALLE Room #: 216-[facility] IN R.#: [id number] Admission: 04/09/17 Attend Phys: Valdez Parekh MD Discharge: 04/10/17 Date of : 48 Report #: [id number] GENERAL APPEARANCE: This is a well-developed, well-nourished male, in no acute respiratory distress. HEAD AND EYES: Normocephalic. Sclerae are anicteric. ENT: Oral mucosa moist. NECK: Supple. LUNGS: Clear to auscultation. CARDIAC: Regular rate and rhythm, S1, S2 positive. ABDOMEN: Soft, nontender. Bowel sounds positive. EXTREMITIES: No cyanosis and no edema. ECG reveals sinus rhythm with T-wave inversions in leads V2 and V3, unchanged compared to his previous tracings from the office. LABORATORY VALUES: White count 9.4, hemoglobin 13.1. Sodium is 138, creatinine is 2.0. Troponin is 0.04. ASSESSMENT AND PLAN: 1. Syncope/near syncope, most likely related to orthostatic hypotension. Since the operation, his blood pressure has been on the low side. The plan is to increase his fluid intake and hydrate. I do not think any additional medications is required at this time. I did recommend that he liberalize his salt intake once he goes home. 2. Coronary artery bypass graft, clinically stable with no symptoms of angina. The ECG change is not new. Continue with aspirin therapy. 3. Hypercholesterolemia, continue with statin therapy. 4. Chronic renal insufficiency, his baseline is approximately 1.6. Continue to hydrate and repeat in a.m. Thank you for allowing me to participate in the care of your patient. <ELECTRONICALLY SIGNED> By: Jacob Flores MD 04/13/17 0808 1746 1700 Jacob Flores MD /nt
[~2017-04-09 12:22] MED LIST changes: +FERREX 150 PLU1 EAC1 PO; +HYDROCODON-ACE1 EAC7 PO; +PACERONE 200 M200 M1 PO
[2017-04-09 12:59] LABS: ABSOLUTE NEUTROPHILS 7.2 thou/uL (1.4-8.2); BASOPHILS 0.9 % (0.0-2.0); EOSINOPHILS 1.8 % (0.0-3.0); HEMATOCRIT 37.6 % (42.0-52.0); HEMOGLOBIN 13.1 gm/dL (14.0-18.0); LYMPHOCYTES 13.4 % (24.0-44.0); MCH 31.2 pg (26.0-34.0); MCHC 34.8 g/dL (28.0-37.0); MCV 89.8 fL (80.0-100.0); MONOCYTES 6.6 % (1.0-8.0); PLATELET COUNT 286 thou/uL (150-400); POLYS 77.3 % (36.0-66.0); RBC 4.18 mil/uL (4.50-6.00); RDW 17.9 % (10.5-14.5); WBC 9.4 thou/uL (4.0-11.0)
[2017-04-09 13:01] LABS: ANION GAP 8 mmol/L (7-16); BUN 25 mg/dL (7-18); CALCIUM 9.6 mg/dL (8.5-10.1); CHLORIDE 103 mmol/L (98-107); CO2 27 mmol/L (21-32); GLUCOSE 155 mg/dL (74-106); MANUAL DIFF NO; POTASSIUM 4.5 mmol/L (3.5-5.1); SODIUM 138 mmol/L (136-145)
[2017-04-09 13:10] LABS: TROPONIN-I < 0.04 ng/mL (<0.04-0.07)
[2017-04-09] MEDS ORDERED: COLACE100 MG PO (13:13)
[2017-04-09] MEDS ORDERED: PROZAC20 MG PO (13:13)
[2017-04-09] MEDS ORDERED: CETIRIZINE HCL5 MG PO (13:14)
[2017-04-10] VITALS (8 sets, daily range): BP systolic 93–131; BP diastolic 56–76
== END 2017-04-10 18:00 | disposition home or self-care (01) | DRG 312 ==
LOC: ER 12:22 → EROBS 14:22 → 2N 14:22 → ENTRNSPT 17:27 → 2N 17:57 → ENTRNSPT 04-10 18:02
PROVIDERS: Emergency Medicine
DX: I95.1 Orthostatic hypotension (principal); E78.00 Pure hypercholesterolemia, unspecified; N18.9 Chronic kidney disease, unspecified; E11.22 Type 2 diabetes mellitus with diabetic chronic kidney disease; I12.9 Hypertensive chronic kidney disease with stage 1 through stage 4 chronic kidney disease, or unspecified chronic kidney disease; I25.10 Atherosclerotic heart disease of native coronary artery without angina pectoris; Z85.820 Personal history of malignant melanoma of skin; Z87.442 Personal history of urinary calculi; Z79.899 Other long term (current) drug therapy; Z88.8 Allergy status to other drugs, medicaments and biological substances; Z95.1 Presence of aortocoronary bypass graft; Z28.21 Immunization not carried out because of patient refusal
CPT/HCPCS: 10081

== ENCOUNTER → 2018-07-15 | Outpatient (CLI) | payer OTHER ==
[~2018-07-15] VITALS: Ht 180.3 cm; Wt 97.5 kg
[~2018-07-15] MED LIST changes: +CETIRIZINE HCL5 MG PO; +COLACE100 MG PO; +COZAAR 25 MG TA25 M1 PO
--- NOTE | 2018-07-16 16:52 | P ---
[facility] [place] [address] [place] [address] PROCEDURE REPORT Name: RADHA DEL VALLE Room #: REG ROSEY Mariam.#: [id number] Admission: 07/15/18 Attend Phys: Pablo Jordan MD Discharge: Date of : 48 Report #: [id number] THIS REPORT FOR: //name// CC: Pablo Parekh BRIEF HISTORY: The patient is a 67-year-old male with recent findings of a Hemoccult positive stool. For screening for colorectal cancer. PREOPERATIVE DIAGNOSIS: Hemoccult-positive stools. POSTOPERATIVE DIAGNOSES: 1. Multiple colon polyps. 2. Rectal polyps x 2. 3. Mild sigmoid diverticulosis coli. MEDICATIONS: Deep sedation with propofol per Anesthesia. SPECIMENS: 1. Polyps x 3 at 70 cm, 3 removed but 1 was lost. 2. Polyp, proximal ascending colon. 3. Polyp, hepatic flexure. 4. Polyp, transverse colon. 5. Rectal polyps x 2. ESTIMATED BLOOD LOSS: 3 mL. PROCEDURE: Colonoscopy to cecum and terminal ileum with snare polypectomy and biopsy. FINDINGS: Prior to propofol sedation, procedure of colonoscopy discussed with the patient as well as potential risks and its complications. He indicates he understands and desires to proceed. DESCRIPTION OF PROCEDURE: With the patient in left lateral decubitus position, digital examination was completed, which revealed no abnormalities. Subsequently, the [employer] video colonoscope was introduced in the rectum, advanced under direct vision to the cecum. It is done with minimal difficulty. Cecum was identified by the ileocecal valve and the appendiceal orifice. I was able to advance the scope into the mouth of the ileocecal valve and see that a very distal aspect of the terminal ileum, which was normal. At that point, the scope was slowly withdrawn and careful circumferential views were obtained. Upon slow withdrawal of the scope, the prep was good. The mucosa was within normal limits, normal vascular pattern, normal light reflex. As we withdrew the scope, a number of polyps were identified. A total of 8 removed today. In the proximal ascending colon, a sessile 5 x 7 mm polyp was seen and removed by cold [facility] [address] [place] [address] PROCEDURE REPORT Name: RADHA DEL VALLE [id number] Admission: 07/15/18 Attend Phys: Pablo Jordan MD Discharge: Date of : 48 Report #: [id number] snare polypectomy. At the hepatic flexure, a 4 x 5 mm sessile polyp was seen and removed by cold snare. In the proximal transverse colon, a diminutive polyp was seen and removed with biopsy forceps. As we withdrew the scope through the remainder of the colon at 70 cm, there was a cluster of 3 polyps. The largest one was about 8 mm. The smallest one was a diminutive polyp. All 3 polyps removed, but the intermediate polyp of about 4-5 mm was lost in recovery attempts. It did have an adenomatous appearance, and it did appear benign. Scope was further withdrawn. A few small diverticula were seen in the sigmoid colon without endoscopic evidence of diverticulitis. Scope was withdrawn in the rectum. In the distal rectum, 2 polyps were seen. One was a 5 mm sessile polyp removed by cold snare polypectomy. The other was a slightly smaller and may be hyperplastic, but it did have a prominent appearance. Upon retroflexion, no additional abnormalities were seen. Scope was withdrawn. The patient tolerated the procedure well. CONDITION OF THE PATIENT UPON DISCHARGE: Following procedure, the patient drowsy, aroused, conversant and will be discharged home when fully ambulatory. INSTRUCTIONS TO THE PATIENT AND FAMILY AT THE TIME OF DISCHARGE: Multiple polyps removed as described above. We will follow up on the path and make further recommendations. However, at this point, in view of the multiple polyps including some of the larger polyps, would have him return in 3 years for followup colonoscopy. Also, suggest high-fiber diet. This is the patient's first colonoscopy. Withdrawal time from the cecum was 19 minutes 17 seconds. <ELECTRONICALLY SIGNED> By: Pablo Jordan MD 07/16/18 1652 1053 1126 Pablo Jordan MD /nt
--- NOTE | 2018-07-16 17:07 | PATH ---
[facility] [address] [address] PATHOLOGY RPT PROCEDURE Name: SEGUN DEL VALLE Room #: REG ROSEY M.R.#: [id number] Admission: 07/15/18 Date of : 48 Discharge: Report #: [id number] Path Case #: [id number] [facility] Accession Number: [id number] . 01 Material submitted: . PART A: POLYP AT 70 CM X2 PART B: POLYP AT PROXIMAL ASCENDING COLON PART C: POLYP AT HEPATIC FLEXURE PART D: BX POLYP PROXIMAL TRANSVERSE COLON PART E: POLYP AT RECTUM X2 . 01 Clinical history: . Blood with stools, colon polyp, diverticulosis, rectal polyp. . 02 Diagnosis: A. Polyp x2, at 70 cm, endoscopic biopsy: - Both fragments showing tubular adenoma. - Negative for high-grade dysplasia. - Larger polyp showing adenomatous changes at stalk/base. . B. Polyp, at proximal ascending colon, endoscopic biopsy: - Tubular adenoma. - Negative for high-grade dysplasia. . C. Polyp, at hepatic flexure, endoscopic biopsy: - Tubular adenoma. - Negative for high-grade dysplasia. . D. Polyp, at proximal transverse colon, endoscopic biopsy: - Minute tubular adenoma. - Negative for high-grade dysplasia. . E. Polyp x2, at rectum, endoscopic biopsy: - One fragment showing a tubular adenoma without high-grade dysplasia. - Second fragment showing hyperplastic polyp without dysplasia. . (IUV:christie; 07/16/2018) MBR/07/16/2018 . 02 Electronically signed: . Mily Parrish MD, Pathologist NPI- [id number] . 01 Gross description: . A. Received in formalin labeled "Segun Del Valle, polyp at 70 cm x2" are four fragments of munroe-brown mucosa measuring in aggregate 0.9 x 0.9 x 0.6 cm. The resection margin on the largest fragment is inked black, and this [facility] [address] [place] [address] PATHOLOGY RPT PROCEDURE Name: SEGUN DEL VALLE R [id number] Admission: 07/15/18 Date of : 48 Discharge: Report #: [id number] Path Case #: [id number] fragment is bisected and submitted in cassette A1. The remaining fragments are submitted in cassette A2. . B. Received in formalin labeled "Segun Del Valle, polyp at proximal ascending colon" is a 0.5 x 0.5 x 0.4 cm munroe-brown polypoid nodule. The resection margin is inked black. The specimen is submitted without sectioning in cassette B1. . C. Received in formalin labeled "Segun Del Valle, polyp at hepatic flexure" are two fragments of pink-munroe mucosa measuring in aggregate 1.0 x 0.4 x 0.2 cm. The specimen is submitted without sectioning in cassette C1. . D. Received in formalin labeled "Segun Del Valle, biopsy polyp at proximal transverse colon" is a 0.5 x 0.4 x 0.1 cm fragment of munroe-brown mucosa. The specimen is submitted in cassette D1. . E. Received in formalin labeled "Segun Del Valle, polyp at rectum x2" are two pink-munroe fragments of mucosa measuring in aggregate 0.6 x 0.5 x 0.4 cm. The specimen is submitted without sectioning in cassette E1. ([facility] [place]; 07/15/2018) SYC/SYC . 02 Pathologist provided ICD-10: D12.6, D12.2, D12.3, D12.8, K62.1 . 02 CPT . 466274, 168171, 578888, 566823, 188281 Specimen Comment: A courtesy copy of this report has been sent to Specimen Comment: [phone], . Specimen Comment: Report sent to / DR LIRIANO Performed at: [address], [place], [place] [id number] MD Tavo Noyola MD Phone: [phone] Performed at: [address] [id number] MD Mily Parrish MD Phone: [phone]
== END | disposition home or self-care (01) ==
LOC: GI 07:32
DX: D12.4 Benign neoplasm of descending colon (principal); D12.2 Benign neoplasm of ascending colon; D12.3 Benign neoplasm of transverse colon; D12.8 Benign neoplasm of rectum; K57.30 Diverticulosis of large intestine without perforation or abscess without bleeding; I10 Essential (primary) hypertension; E11.9 Type 2 diabetes mellitus without complications; E78.5 Hyperlipidemia, unspecified; M10.9 Gout, unspecified; Z90.49 Acquired absence of other specified parts of digestive tract; Z95.1 Presence of aortocoronary bypass graft; Z98.890 Other specified postprocedural states; Z85.820 Personal history of malignant melanoma of skin; Z87.442 Personal history of urinary calculi; Z79.899 Other long term (current) drug therapy; Z79.82 Long term (current) use of aspirin; Z91.018 Allergy to other foods

== ENCOUNTER → 2019-11-24 | Outpatient (CLI) | payer OTHER | LOC: SJCVC 08:09 | PROVIDERS: ATTEND Internal Medicine Cardiovascular Disease | DX: I25.10 Atherosclerotic heart disease of native coronary artery without angina pectoris (principal) ==

== ENCOUNTER → 2019-12-19 | Outpatient (CLI) | payer OTHER | LOC: SJCVCIMAG 10:31 | PROVIDERS: ATTEND Internal Medicine Cardiovascular Disease | DX: I25.10 Atherosclerotic heart disease of native coronary artery without angina pectoris (principal); I10 Essential (primary) hypertension; E78.5 Hyperlipidemia, unspecified; Z95.1 Presence of aortocoronary bypass graft; Z90.49 Acquired absence of other specified parts of digestive tract; Z79.899 Other long term (current) drug therapy ==

== ENCOUNTER → 2020-07-18 | Outpatient (CLI) | payer OTHER | LOC: SJCVC 11:18 | PROVIDERS: ATTEND Internal Medicine Cardiovascular Disease | DX: I25.10 Atherosclerotic heart disease of native coronary artery without angina pectoris (principal); I49.9 Cardiac arrhythmia, unspecified; I10 Essential (primary) hypertension; E78.00 Pure hypercholesterolemia, unspecified; R60.9 Edema, unspecified; E10.9 Type 1 diabetes mellitus without complications; I73.9 Peripheral vascular disease, unspecified; Z79.82 Long term (current) use of aspirin; Z79.899 Other long term (current) drug therapy ==

== ENCOUNTER → 2021-01-17 | Outpatient (CLI) | payer OTHER | LOC: SJCVCIMAG 09:32 | PROVIDERS: ATTEND Internal Medicine Cardiovascular Disease | DX: I35.0 Nonrheumatic aortic (valve) stenosis (principal); I35.8 Other nonrheumatic aortic valve disorders; I25.10 Atherosclerotic heart disease of native coronary artery without angina pectoris; E78.00 Pure hypercholesterolemia, unspecified; I49.8 Other specified cardiac arrhythmias; R60.9 Edema, unspecified; E11.22 Type 2 diabetes mellitus with diabetic chronic kidney disease; I12.9 Hypertensive chronic kidney disease with stage 1 through stage 4 chronic kidney disease, or unspecified chronic kidney disease; N18.30 Chronic kidney disease, stage 3 unspecified; Z90.49 Acquired absence of other specified parts of digestive tract; Z95.1 Presence of aortocoronary bypass graft; Z98.61 Coronary angioplasty status; Z88.8 Allergy status to other drugs, medicaments and biological substances; Z79.82 Long term (current) use of aspirin; Z79.84 Long term (current) use of oral hypoglycemic drugs; Z79.899 Other long term (current) drug therapy; Z82.49 Family history of ischemic heart disease and other diseases of the circulatory system ==

== ENCOUNTER → 2021-01-31 | Outpatient (CLI) | payer OTHER | LOC: SJCVC 10:25 | PROVIDERS: ATTEND Internal Medicine Cardiovascular Disease | DX: I10 Essential (primary) hypertension (principal); E11.9 Type 2 diabetes mellitus without complications; I25.10 Atherosclerotic heart disease of native coronary artery without angina pectoris; E78.00 Pure hypercholesterolemia, unspecified; Z90.49 Acquired absence of other specified parts of digestive tract; Z68.29 Body mass index [BMI] 29.0-29.9, adult; Z95.1 Presence of aortocoronary bypass graft; Z79.82 Long term (current) use of aspirin; Z79.84 Long term (current) use of oral hypoglycemic drugs; Z79.899 Other long term (current) drug therapy ==

== ENCOUNTER → 2021-07-22 | Outpatient (CLI) | payer BC | LOC: SJCVC 12:59 | PROVIDERS: ATTEND Internal Medicine Cardiovascular Disease | DX: I12.9 Hypertensive chronic kidney disease with stage 1 through stage 4 chronic kidney disease, or unspecified chronic kidney disease (principal); N18.9 Chronic kidney disease, unspecified; E11.22 Type 2 diabetes mellitus with diabetic chronic kidney disease; I25.10 Atherosclerotic heart disease of native coronary artery without angina pectoris; E78.00 Pure hypercholesterolemia, unspecified; R60.9 Edema, unspecified; Z88.0 Allergy status to penicillin; Z79.82 Long term (current) use of aspirin; Z79.84 Long term (current) use of oral hypoglycemic drugs; Z79.899 Other long term (current) drug therapy; Z82.49 Family history of ischemic heart disease and other diseases of the circulatory system ==